=== PATIENT | female | born 1950 | race Caucasian/White ===

== ENCOUNTER 2017-10-15 21:07 | Emergency (ER) | payer MEDICARE, OTHER ==
--- NOTE | 2017-10-15 21:18 | ED Physician Chart ---
ED Chief Complaint/HPI - Patient Information Date Seen:: 10/15/17 Time Seen:: 21:10 Chief Complaint:: altered level of consciousness History of Present Illness:: Patient was found in the bushes apparently resting comfortably. She is known to the ambulance personnel as a regular user of alcohol. is reportedly on his right. Historian:: EMS Review:: Nurse's Note Reviewed ED Review of Systems - Review of Systems General/Constitutional: No fever, No chills Skin: No skin lesions Head: No headache Eyes: No loss of vision ENT: No earache Neck: No neck pain, No swelling Cardio Vascular: No chest pain, No palpitations Pulmonary: No SOB GI: No nausea, No vomiting, No diarrhea G/U: No dysuria Musculoskeletal: No bone or joint pain Endocrine: No polyuria, No polydipsia Psychiatric: Other (unknown) Hematopoietic: No bruising Allergic/Immuno: No urticaria Neurological: No syncope ED Past Medical History - Past Medical History Past Medical History: Other (unknown) Family History: Other (unknown) Social History: Other (unknown) Surgical History: other (unknown) Psychiatricy History: Other (unknown) ED Physical Exam - Physical Examination General/Constitutional: Well-developed, well-nourished, Alert, No distress Other Gen/Cons comments:: Somnolent Head: Atraumatic Eyes: Lids, conjuctiva normal, PERRL Skin: Nl inspection, No rash, No skin lesions, No ecchymosis ENMT: External ears, nose nl Neck: No nuchal rigidity Respiratory: Clear to Auscultation Cardio Vascular: RRR GI: No tenderness/rebounding/guarding : No CVA tenderness Neuro/Psych: No focal deficits ED Labs/Radiology/EKG Results - Lab Results Results: Laboratory Results - last 24 hr 10/15/17 21:31 Ethyl Alcohol 417 H ED Assessment - Assessment General Assessment: At 2210 patient able to stand well and here to take her home. He states that she drinks too much alcohol and there is nothing he can do about it ED Septic Shock - . Is Septic Shock (SBP<90, OR Lactate>4 mmol\L) present?: No ED Reassessment (Disposition) - Reassessment Reassessment Condition:: Improved - Diagnosis Diagnosis:: Acute alcohol intoxication - Aftercare/Follow up Instructions Aftercare/Follow-Up Instructions:: Counseled pt & family regarding lab results/ diagnosis & need follow up - Patient Disposition Discharge/Transfer:: Home Condition at Disposition:: Stable, Improved
== END 2017-10-15 22:20 | disposition left against medical advice (07) ==
LOC: ER 21:07
DX: F10.129 Alcohol abuse with intoxication, unspecified (principal)
CPT/HCPCS: 36415-UA; 80320-TC; Z7502